=== PATIENT | male | born 1970 | race American Indian/Alaskan Native ===

== ENCOUNTER 2017-02-15 23:27 | Emergency (ER) | payer SELFPAY ==
[2017-02-16 00:39] LABS: Basophils % (Auto) 0.5 % (0.0-1.8); Hematocrit 42.8 % (35.5-45.6); Hemoglobin 13.6 gm/dl (11.8-15.2); Mean Corpuscular HGB Conc 32 % (32-34); Mean Corpuscular Hemoglobin 26 pg (28-32); Mean Corpuscular Volume 83 fl (84-94); Platelet Count 272 K/mm3 (140-440); Red Blood Count 5.19 M/mm3 (3.65-5.03); Red Cell Distribution Width 14.1 % (13.2-15.2); White Blood Count 15.1 K/mm3 (4.5-11.0)
[2017-02-16 00:56] LABS: Anion Gap 18 mmol/L; BUN/Creatinine Ratio 11.11; Blood Urea Nitrogen 10 mg/dL (9-20); Calcium 8.2 mg/dL (8.4-10.2); Carbon Dioxide 26 mmol/L (22-30); Chloride 94.5 mmol/L (98-107); Glucose 222 mg/dL (75-100); Sodium 134 mmol/L (137-145)
[2017-02-16 01:37] LABS: Bacteria,Urine 1+ /HPF (Negative); Bilirubin,Urine NEG (Negative); Blood,Urine SM (Negative); Ketones,Urine TR mg/dL (Negative); Leukocyte Esterase,Urine LG (Negative); Nitrite,Urine NEG (Negative); Protein,Urine <15 mg/dL mg/dL (Negative); RBC,Urine < 1.0 /HPF (0.0-6.0); Urobilinogen,Urine < 2.0 mg/dL (<2.0)
--- NOTE | 2017-02-16 02:57 | Ultrasound Report ---
FINAL REPORT PROCEDURE: US TESTICULAR DOPPLER COMP TECHNIQUE: Real-time landin-scale and color flow Doppler sonography in multiple planes of the scrotum, testicles, and epididymes was performed. Velocity spectral waveform analysis Doppler imaging of the arterial inflow and venous outflow of the testicles was performed with image documentation. CPT 28264 and 89151 HISTORY: swelling, pain COMPARISON: No prior studies are available for comparison. FINDINGS: RIGHT TESTICLE: Size: 3.5 x 2.3 x 2.7 cm . Appearance: Normal size and echotexture . Arterial blood flow: Normal spectral waveforms, flow velocities and color flow images.. Venous blood flow: Normal spectral waveforms and color flow images. Right epididymis: Normal size and echotexture . Hydrocele: There is a small complex hydrocele.. There is a complex vascular mass in the right hemiscrotum measuring 5.6 x 2.5 x 1.9 centimeters. LEFT TESTICLE Size: 2.9 x 2.1 x 2.0 cm . Appearance: Normal size and echotexture . Arterial blood flow: Normal spectral waveforms, flow velocities and color flow images.. Venous blood flow: Normal spectral waveforms and color flow images. Leftepididymis: Normal size and echotexture . Hydrocele: None . There is a complex vascular mass in the left hemiscrotum measuring 5.3 x 2.4 x 0.8 centimeters. IMPRESSION: There is no intrinsic testicular abnormality including mass or torsion. There are complex masses in the scrotum bilaterally most likely representing inguinal hernias. Further evaluation with CT suggested.
--- NOTE | 2017-02-16 03:18 | Emergency Department Report ---
HPI - General Chief Complaint: Urogenital-Male Time Seen by Provider: 02/16/17 02:26 - HPI HPI: Patient is a 46-year-old male presents to ED complaining of cough in terms of couple weeks. Patient also states he is having some pain with urination as well notices some blood in his urine 5 days ago. Patient also states that he is to sick to this swollen for the past 4 days. Patient also complains of right lower flank pain for the past 4 days. Patient admits intermittent fever for the past week. Patient admits pain with urination. Patient admits mild coughing for the past week nonproductive dry cough. Patient denies nausea/vomiting/abdominal pain/chest pain/shortness of breath/ difficulty breathing/dizziness/headache/blurred vision. ED Past Medical Hx - Past Medical History Previous Medical History?: No - Surgical History Past Surgical History?: No - Social History Smoking Status: Former Smoker Substance Use Type: Alcohol - Medications Home Medications: Home Medications Medication Instructions Recorded Confirmed Last Taken Type Sulfamethoxazole/Trimethoprim 1 each PO BID #14 tablet 02/16/17 Unknown Rx [Bactrim DS TAB] metroNIDAZOLE [Flagyl] 500 mg PO ONCE #4 tab 02/16/17 Unknown Rx ED Review of Systems ROS: Stated complaint: BLOOD IN URINE Other details as noted in HPI Constitutional: denies: chills, fever Eyes: denies: eye pain, eye discharge, vision change ENT: denies: ear pain, throat pain Respiratory: cough. denies: shortness of breath, wheezing Cardiovascular: denies: chest pain, palpitations Endocrine: no symptoms reported Gastrointestinal: denies: abdominal pain, nausea, vomiting, diarrhea, constipation Genitourinary: dysuria, testicular pain. denies: urgency, frequency, hematuria , discharge Musculoskeletal: denies: back pain, joint swelling, arthralgia Skin: denies: rash, lesions Neurological: denies: headache, weakness, numbness, paresthesias, confusion, abnormal gait Psychiatric: denies: anxiety, depression Hematological/Lymphatic: denies: easy bleeding, easy bruising Physical Exam - Physical Exam Vital Signs: Vital Signs 02/16/17 00:01 Temperature 99.9 F H Pulse Rate 90 Respiratory 20 Rate Blood Pressure 111/74 [Right] O2 Sat by Pulse 100 Oximetry Physical Exam: GENERAL: Alert and oriented x3, no apparent distress, Normal Gait, atraumatic. HEAD: Head is normocephalic and a-traumatic. EYES: Extra ocular muscles are intact. Pupils are equal, round, and reactive to light and accommodation. NOSE: Nose symetrical, Nontender,Nares appeared normal. MOUTH:Mouth is well hydrated and without lesions.Patent airways. NECK: Supple. Non edematous, No carotid bruits. No lymphadenopathy or thyromegaly. LUNGS: Symetrical with respiration, No wheezing, no rales or crackles, CTAB. HEART: S1, S2 present, regular rate and rhythm without murmur, no rubs, no gallops. ABDOMEN: No organomegaly was noted,Positive bowel sounds, soft, and non- distended. . Nontender to palpation on all Quadrants, NO CVA tenderness. UROGENITAL: Patient declined in her chin to exam due to wanting a male clinician EXTREMITIES/MUSCULOSKELETAL: No cyanosis, clubbing, rash, lesions or edema. Full ROM bilaterally. UE Pulses 2+ bilaterally. NEUROLOGIC: No focal Deficit, Cranial nerves II through XII are grossly intact. No loss of sensation, PSYCHIATRIC: Mood is congruent with affect, denies suicidal or homicidal ideations. SKIN: Warm and dry, No lesions, No ulceration or induration present. ED Course Vital Signs 02/16/17 00:01 Temperature 99.9 F H Pulse Rate 90 Respiratory 20 Rate Blood Pressure 111/74 [Right] O2 Sat by Pulse 100 Oximetry ED Medical Decision Making - Lab Data Result diagrams: 02/16/17 00:30 02/16/17 00:30 - Radiology Data Radiology results: report reviewed, image reviewed FINAL REPORT PROCEDURE: CT PELVIS WO CON TECHNIQUE: Computerized axial tomography of the pelvis was performed without contrast material. HISTORY: scrotal pain/ COMPARISON: No prior studies are available for comparison. TECHNICAL QUALITY: Satisfactory. FINDINGS: There is partial imaging of the scrotum and testicles. The left testicle is not included on the examination. The right testicle appears to be normal in size and configuration with somewhat heterogeneous. Possibility of pathology cannot be excluded. Examination is limited particularly without contrast. Ultrasound may be helpful. There is edema or induration of the right scrotal soft tissues which could indicate infection or bruising. There is no hernia. The kidneys are not entirely imaged. There are no demonstrated ureteral stones. Urinary bladder is unremarkable. There is moderate stool in the rectum is and sigmoid colon. There is a linear density in the rectum measuring 15 millimeters on image 55. This could be a fishbone or other ingested item. The appendix is normal. The bony pelvis is intact. There are no fractures. There is no ascites or free air. There is no peritoneal abscess. IMPRESSION: The right testicle appears to be normal in size and configuration with somewhat heterogeneous. Possibility of pathology cannot be excluded. Ultrasound may be helpful. There is edema or induration of the right scrotal soft tissues which could indicate infection or bruising. There is no hernia. There is a linear density in the rectum measuring 15 millimeters on image 55. This could be a fishbone or other ingested item. The bony pelvis is intact. There are no fractures. There is no ascites or free air. There is no peritoneal abscess. Transcribed By: CO Dictated By: SWETA SMITH MD Electronically Authenticated By: SWETA SMITH MD Signed Date/Time: 02/16/17 0414 - Medical Decision Making 46-year-old male presents with urinary tract infection possibly sexually- transmitted disease ED course: CBC, CMP, urinalysis, scrotum ultrasound ordered CT of the pelvis shows: See above The patient received Rocephin, azithromycin ED, 1 L of NS. Discussed findings with patient. Discussed the patient follow up with primary care physician and urologist as discussed. Vital Signs are stable. Patient is in no acute respiratory distress. Patient States he understands and will take medication as prescribed. Critical care attestation.: If time is entered above; I have spent that time in minutes in the direct care of this critically ill patient, excluding procedure time. ED Disposition Clinical Impression: Orchitis, Urethritis Disposition: DISCHARGED TO HOME OR SELFCARE Is pt being admited?: No Does the pt Need Aspirin: No Condition: Stable Instructions: Sexually Transmitted Diseases (ED), Epididymitis (ED), Nonspecific Urethritis in Men (ED), Urinary Tract Infection in Men (ED) Prescriptions: metroNIDAZOLE [Flagyl] 500 mg PO ONCE #4 tab Sulfamethoxazole/Trimethoprim [Bactrim DS TAB] 1 each PO BID #14 tablet Referrals: PREETI PHIPPS MD [Primary Care Provider] - 3-5 Days KACEY CHURCH MD [Staff Physician] - 3-5 Days LIANG RUBY MD [Referring] - 3-5 Days [facility] [Outside] - 3-5 Days Forms: Accompanied Note, STI Treatment and Prevention, Work/School Release Form (ED) Time of Disposition: 05:46
[2017-02-16] MEDS ORDERED: TYLENOL #3 PO ONE (04:05)
[2017-02-16] MEDS ORDERED: ROCEPHIN IM ONE (04:05)
[2017-02-16] MEDS ORDERED: XYLOCAINE 1% MPF 5 mL INFILTRATI ONE (04:05)
[2017-02-16] MEDS ORDERED: ZITHROMAX PO ONE (04:06)
--- NOTE | 2017-02-16 04:17 | Cat Scan Report ---
FINAL REPORT PROCEDURE: CT PELVIS WO CON TECHNIQUE: Computerized axial tomography of the pelvis was performed without contrast material. HISTORY: scrotal pain/ COMPARISON: No prior studies are available for comparison. TECHNICAL QUALITY: Satisfactory. FINDINGS: There is partial imaging of the scrotum and testicles. The left testicle is not included on the examination. The right testicle appears to be normal in size and configuration with somewhat heterogeneous. Possibility of pathology cannot be excluded. Examination is limited particularly without contrast. Ultrasound may be helpful. There is edema or induration of the right scrotal soft tissues which could indicate infection or bruising. There is no hernia. The kidneys are not entirely imaged. There are no demonstrated ureteral stones. Urinary bladder is unremarkable. There is moderate stool in the rectum is and sigmoid colon. There is a linear density in the rectum measuring 15 millimeters on image 55. This could be a fishbone or other ingested item. The appendix is normal. The bony pelvis is intact. There are no fractures. There is no ascites or free air. There is no peritoneal abscess. IMPRESSION: The right testicle appears to be normal in size and configuration with somewhat heterogeneous. Possibility of pathology cannot be excluded. Ultrasound may be helpful. There is edema or induration of the right scrotal soft tissues which could indicate infection or bruising. There is no hernia. There is a linear density in the rectum measuring 15 millimeters on image 55. This could be a fishbone or other ingested item. The bony pelvis is intact. There are no fractures. There is no ascites or free air. There is no peritoneal abscess.
[2017-02-16] MEDS ORDERED: NACL 0.9% 1000 ML 1,000 ML IV ONE (05:00)
[2017-02-16 05:37] VITALS: BP 104/62
== END 2017-02-16 06:22 | disposition home or self-care (01) ==
LOC: ED 23:27
DX: N45.2 Orchitis (principal); N34.2 Other urethritis
CPT/HCPCS: 36415; 72192; 80048; 81001; 85025; 87591; 93975; 96360; 96372; 99284; J0696; J7030